=== PATIENT | female | born 1940 | race Caucasian/White ===

== ENCOUNTER → 2016-12-03 | Outpatient (CLI) | payer BC ==
[~2016-12-03] MED LIST: ACET-1256 PO; ARFO15NE INH; ASPCH81 PO; CHOL100027 PO; CHOL2000 PO; FURO-85 PO; GABA-113 PO; HYDC25 PO; LISI-725 PO; METO100T14 PO; MULTCAP31 PO; OMEP40CA41 PO; PARO1TAB27 PO; SILDINJ PO; VERA120T5 PO
[2016-12-03 14:40] LABS: BASO % 0.6 %; BASO ABS # 0.04 K/uL (0-0.2); COMPLETE YES; EOS % 3.5 %; HEMATOCRIT 34.4 % (37-47); IG% 0.3 %; LYMPH % 29.1 %; LYMPH ABS # 2.11 K/uL (1.2-3.4); MEAN CELL VOLUME 95.3 fL (80-100); MEAN CORPUSCULAR HGB CONC 32.6 g/dl (32-36); MEAN PLATELET VOLUME 8.8 fL (7.4-10.4); MONO % 8.1 %; NEUT % 58.4 %; PLATELET COUNT 332 K/uL (130-400); RED BLOOD COUNT 3.61 M/uL (4.2-5.4); WHITE BLOOD COUNT 7.24 K/uL (4.8-10.8)
[2016-12-03 16:04] LABS: ALT/SGPT 18 U/L (12-78); BLOOD UREA NITROGEN 25 mg/dl (7-18); BUN/CREATININE RATIO 22.8 (10-20); CALCIUM 9.2 mg/dl (8.5-10.1); CARBON DIOXIDE 27 mmol/L (21-32); CHLORIDE 102 mmol/L (98-107); CHOLESTEROL 238 mg/dl (0-200); GLUCOSE 114 mg/dl (70-99); POTASSIUM 4.3 mmol/L (3.5-5.1); SODIUM 137 mmol/L (136-145); TRIGLYCERIDES 315 mg/dl (0-150); VERY LOW DENSITY LIPOPROT CALC 63 mg/dl
[2016-12-03 16:07] LABS: ALB/GLOB RATIO 0.9 (0.9-2); ALKALINE PHOSPHATASE 74 U/L (45-117); AST/SGOT 14 U/L (15-37); CHOLESTEROL/HDL RATIO 4.7; HDL CHOLESTEROL 51 mg/dl; LDL CHOLESTEROL CALCULATED 124 mg/dl
--- NOTE | 2016-12-15 10:51 | CODING QUERY MEDICAL NECESSITY ---
CQSUPPORTING DIAGNOSIS NEEDED A supporting diagnosis is required for the test/procedure performed on this patient in order for us to be reimbursed by the patient's insurance. Please provide a supporting diagnosis for the following test/procedure listed below next to the test name along with your signature. *If there is no additional diagnosis for this patient that would support the following test/procedure please document that below next to the test/procedure. Test(s)/Procedure(s) that require a supporting diagnosis: DOS 12/03/16 VITAMIN B12 TEST Provider Signature: Date: Thank you Leticia Batista Health Information Management Once completed, please kindly fax back to [phone] For questions please call [phone]
== END | disposition home or self-care (01) ==
LOC: C.LAB 13:36
PROVIDERS: ATTEND Internal Medicine Geriatric Medicine
DX: E55.9 Vitamin D deficiency, unspecified (principal); E78.5 Hyperlipidemia, unspecified; M19.90 Unspecified osteoarthritis, unspecified site; D64.9 Anemia, unspecified; N18.9 Chronic kidney disease, unspecified; G62.9 Polyneuropathy, unspecified

== ENCOUNTER → 2017-01-07 | Outpatient (CLI) | payer BC ==
--- NOTE | 2017-01-07 14:32 | MAMMOGRAPHY REPORT ---
BILATERAL DIGITAL SCREENING MAMMOGRAM WITH CAD: 01/07/2017 TECHNIQUE: Current study was also evaluated with a Computer Aided Detection (CAD) system. Bilateral CC and MLO views were obtained. COMPARISON: Comparison is made to exams dated: 01/06/2016 mammogram, 01/02/2015 mammogram, 11/20/2013 mammogram, 11/01/2012 mammogram, 10/29/2011 mammogram, and 10/20/2010 mammogram - [facility] enter. BREAST COMPOSITION: There are scattered areas of fibroglandular density in both breasts. FINDINGS: No suspicious masses, calcifications, or areas of architectural distortion are noted in ei ther breast. There has been no significant interval change compared to prior exams. IMPRESSION: ACR BI-RADS CATEGORY 1: NEGATIVE There is no mammographic evidence of malignancy. A 1 year screening mammogram is recommended. The pa tient will receive written notification of the results. Approximately 10% of breast cancers are not detected with mammography. A negative mammographic report should not delay biopsy if a clinically suggestive mass is present. Carly Alvarez M.D. ah/:01/07/2017 12:39:25 Resource Engineer: Yaneth MEYER(R)(M), [facility] letter sent: Normal 1/2 BI-RADS Code: ACR BI-RADS Category 1: Negative
== END | disposition home or self-care (01) ==
LOC: C.MAMM 11:14
PROVIDERS: ATTEND Internal Medicine Geriatric Medicine
DX: Z12.31 Encounter for screening mammogram for malignant neoplasm of breast (principal)